=== PATIENT | male | born 1970 | race Caucasian/White ===

== ENCOUNTER 2016-09-29 11:55 | Inpatient (IN) | payer OTHER ==
[2016-09-29 13:42] VITALS: BMI 23.6
--- NOTE | 2016-09-29 18:18 | HP ---
Admission ROS [facility] Chief Complaint: i am here for rehab from heroin and crack Allergies/Adverse Reactions: Allergies Allergy/AdvReac Type Severity Reaction Status Date / Time No Known Allergies Allergy Verified 09/29/16 16:40 History of Present Illness: this 46 years old with heroin and crack dependence,seeking rehab,last treatment [facility] 09/24/16 to 09/29/16 nicotine dependence insomnia hypertension - Ebola screening Have you traveled outside of the country in the last 21 days: No Have you had contact with anyone from an Ebola affected area: No Have you been sick,other than usual withdrawal symptoms: No - Review of Systems Constitutional: No Symptoms Reported EENT: reports: No Symptoms Reported Respiratory: reports: No Symptoms reported Cardiac: reports: No Symptoms Reported GI: reports: No Symptoms Reported : reports: No Symptoms Reported Musculoskeletal: reports: No Symptoms Reported Integumentary: reports: No Symptoms Reported Neuro: reports: No Symptoms reported Endocrine: reports: No Symptoms Reported Hematology: reports: No Symptoms Reported Psychiatric: reports: No Sypmtoms Reported (insomnia), Judgement Intact, Mood/ Affect Appropiate, Anxious, Depressed Patient History - Patient Medical History Hx Anemia: No Hx Asthma: No Hx Chronic Obstructive Pulmonary Disease (COPD): No Hx Cancer: No Hx Cardiac Disorders: No Hx Congestive Heart Failure: No Hx Hypertension: Yes (no medication) Hx Hypercholesterolemia: No Hx Pacemaker: No HX Cerebrovascular Accident: No Hx Seizures: No Hx Dementia: No Hx Diabetes: No Hx Gastrointestinal Disorders: No Hx Liver Disease: No Hx Genitourinary Disorders: No Hx Sexually Transmitted Disorders: No Hx Renal Disease (ESRD): No Hx Thyroid Disease: No Hx Human Immunodeficiency Virus (HIV): No (2014 last negative) Hx Hepatitis C: No Hx Depression: Yes (anxiety) Hx Suicide Attempt: No Hx Bipolar Disorder: No Hx Schizophrenia: No Other Medical History: no suicidal,no homicidal - Patient Surgical History Past Surgical History: No - PPD History Previous Implant?: Yes Documented Results: Positive w/proof Implanted On Prior R Admission?: No PPD to be Administered?: No - Smoking Cessation Smoking history: Current every day smoker Have you smoked in the past 12 months: Yes Aproximately how many cigarettes per day: 10 Hx Chewing Tobacco Use: No Initiated information on smoking cessation: Yes 'Breaking Loose' booklet given: 09/29/16 - Substance & Tx. History Hx Alcohol Use: No Hx Substance Use: Yes Substance Use Type: Cocaine, Heroin Hx Substance Use Treatment: Yes ([facility] 09/24/16 to 09/29/16) - Substances Abused Heroin Route: Inhalation Frequency: Daily Amount used: 5 BAGS Age of first use: 30 Date of Last Use: 09/24/16 Crack Route: Smoking Frequency: Daily Amount used: $80-90 Age of first use: 18 Date of Last Use: 09/24/16 Family Disease History - Family Disease History Family History: Denies Admission Physical Exam [facility] - Vital Signs Vital Signs: Vital Signs - 24 hr 09/29/16 13:41 Temperature 98.3 F Pulse Rate 61 Respiratory 16 Rate Blood Pressure 128/73 - Physical General Appearance: Yes: Within Normal Limits HEENTM: Yes: Within Normal Limits, Normal ENT Inspection, BEATA, Pharynx Normal Respiratory: Yes: Lungs Clear, Normal Breath Sounds, No Respiratory Distress Neck: Yes: Within Normal Limits Breast: Yes: Within Normal Limits Cardiology: Yes: Within Normal Limits, Regular Rhythm, Regular Rate, S1, S2 Abdominal: Yes: Within Normal Limits, Normal Bowel Sounds, Non Tender, Flat, Soft Genitourinary: Yes: Within Normal Limits Back: Yes: Within Normal Limits Musculoskeletal: Yes: Within Normal Limits Extremities: Yes: Within Normal Limits Neurological: Yes: Within Normal Limits, tangible personal property appraiser II-XII NML intact, Fully Oriented, Alert Integumentary: Yes: Within Normal Limits Lymphatic: Yes: Within Normal Limits - Diagnostic (1) Opioid dependence Current Visit: Yes Status: Acute (2) Insomnia Current Visit: Yes Status: Acute (3) Anxiety and depression Current Visit: Yes Status: Acute (4) Nicotine dependence Current Visit: Yes Status: Acute (5) Positive PPD, treated Current Visit: Yes Status: Acute Cleared for Admission [facility] - Detox or Rehab Claeared for Rehab Admission: Yes [facility] Breath Alcohol Content Breath Alcohol Content: 0 Urine Drug Screen - Results Drug Screen Negative: No Urine Drug Screen Results: [place]-Cocaine, MTD-Methadone
[2016-09-29] MEDS ORDERED: ACETAMINOPHEN 325 MG TABLET (FP) PO PRN (18:30)
[2016-09-29] MEDS ORDERED: MENTHOL/PHENOL 1 EACH UD MM PRN (18:30)
[2016-09-29] MEDS ORDERED: MAGNESIUM CITRATE 300 ML BOTTLE PO PRN (18:30)
[2016-09-29] MEDS ORDERED: MAGNESIUM HYDROX 2400MG/30ML ORAL SUSPENSION 30 ML CUP PO PRN (18:30)
[2016-09-29] MEDS ORDERED: P-EPHED 60MG/TRIPROLIDI 2.5MG TABLET PO PRN (18:30)
[2016-09-29] MEDS ORDERED: guaiFENesin/D-METHORPHAN HB 10 ML UNIT-DOSE CUPS PO PRN (18:30)
[2016-09-29] MEDS ORDERED: LOPERAMIDE HCL 2 MG CAPSULE PO PRN (18:30)
[2016-09-29] MEDS ORDERED: MAG HYDROX/AL HYDROX/SIMETH 30 ML UNIT-DOSE CUP PO PRN (18:30)
[2016-09-29] MEDS ORDERED: cloNIDine HCL 0.1 MG TABLET PO PRN (19:45)
[2016-09-29] MEDS ORDERED: QUEtiapine FUMARATE 50 MG TABLET PO SCH (22:00)
[2016-09-29] MEDS: FLUOCINONIDE 0.05% CREAM (60 GM TUBE) TP SCH (22:38)
[2016-09-29] MEDS: THIAMINE HCL 100 MG TABLET (FP) PO SCH (22:39)
[2016-09-29 22:59] LABS: URINE APPEARANCE CLEAR; URINE BILIRUBIN NEGATIVE (NEGATIVE); URINE BLOOD NEGATIVE (NEGATIVE); URINE COLOR LTYELLOW; URINE GLUCOSE (UA) NEGATIVE (NEGATIVE); URINE KETONE NEGATIVE (NEGATIVE); URINE LEUK ESTERASE NEGATIVE (NEGATIVE); URINE NITRITE NEGATIVE (NEGATIVE); URINE PROTEIN NEGATIVE (NEGATIVE); URINE UROBILINOGEN NEGATIVE mg/dL (0.2-1.0)
[2016-09-30] MEDS: IBUPROFEN 400 MG TABLET (FP) PO PRN (06:21)
--- NOTE | 2016-09-30 09:23 | EKG ---
Test Reason : Blood Pressure : / mmHG Vent. Rate : 062 BPM Atrial Rate : 062 BPM P-R Int : 172 ms QRS Dur : 086 ms QT Int : 414 ms P-R-T Axes : 061 -23 040 degrees QTc Int : 420 ms NORMAL SINUS RHYTHM LEFT VENTRICULAR HYPERTROPHY NO PREVIOUS ECGS AVAILABLE Confirmed by MARIAN MEZA MD ([id number]) on 09/30/2016 9:22:58 AM Referred By: DR CHANG Confirmed By:MARIAN MEZA MD
[2016-09-30] MEDS: PRENATAL VITAMINS W/ FOLIC ACID TABLET (FP) PO SCH (10:02)
[2016-09-30] MEDS: FLUOCINONIDE 0.05% CREAM (60 GM TUBE) TP SCH ×2 (10:02→23:23)
--- NOTE | 2016-09-30 10:26 | HP ---
Psychiatrist Admission - Data Date of interview: 09/30/16 Admission source: [facility] Identifying data: THis is the first 5N inpatient rehabilitation admission for this 46 year old single Black male, unemployed and on welfare, residing alone in [place]. Medical History: HTN and Arthritis, smokes cigarettes 1/2 PPD. Psychiatric History: Patient reports met with a psychiatrist in outpatient setting to address depressed mood, anxiety , states was diagnosed as PTSD and recommended seroquel which he was on for a couple of months and then he stopped "I was busy running on the streets and doing drugs". States Seroquel helped "to relax and sleep". Patient reports due to the fact that he was in isolation 19 years he likes to be himself and he tends to isolate self.Reports he still withdrawing from heroin(sweating, boday aches). Additional Comment: Patient reports he spent 23 years in [facility], 19 in isolation( for killing inmate) released in 2014. Vital Signs: Vital Signs - 24 hr 09/29/16 09/29/16 09/30/16 13:41 19:29 00:30 Temperature 98.3 F 98.4 F Pulse Rate 61 64 Respiratory 16 20 18 Rate Blood Pressure 128/73 159/90 09/30/16 09/30/16 03:30 06:50 Temperature 98.1 F Pulse Rate 56 L Respiratory 18 16 Rate Blood Pressure 139/86 Allergies/Adverse Reactions: Allergies Allergy/AdvReac Type Severity Reaction Status Date / Time No Known Allergies Allergy Verified 09/29/16 16:40 Date of last physical exam: 09/29/16 Concur with the findings of this exam: Yes - Substance Abuse/Tx History Hx Alcohol Use: No Hx Substance Use: Yes Substance Use Type: Cocaine ($100-150 2-3 times a week, started at age of 18), Heroin (started toni ge of 30, used 5 bags daily.) Hx Substance Use Treatment: Yes - Admission Criteria Previous failed treatment: Yes Poor recovery environment: Yes Comorbidities: Yes Lacks judgement: Yes Mental Status Exam - Mental Status Exam Alert and Oriented to: Time, Place, Person Cognitive Function: Grossly Intact Patient Appearance: Well Groomed Mood: Apathetic, Sad, Anxious Affect: Blunted, Constricted Patient Behavior: Appropriate, Cooperative Speech Pattern: Clear, Appropriate Voice Loudness: Normal Thought Process: Intact, Goal Oriented Thought Disorder: Not Present Hallucinations: Denies Suicidal Ideation: Denies Homicidal Ideation: Denies Insight/Judgement: Fair Sleep: Poorly Appetite: Fair Muscle strength/Tone: Normal Gait/Station: Normal Psychiatric Findings - Problem List (Manquin 1, 2,3) (1) Nicotine dependence Current Visit: Yes Status: Acute (2) Opioid dependence Current Visit: Yes Status: Acute (3) Mood disorder Current Visit: Yes Status: Acute (4) PTSD (post-traumatic stress disorder) Current Visit: Yes Status: Acute - Initial Treatment Plan Initial Treatment Plan: Increase Seroquel 100 mg po hs, add Gabapentin 100 mg po tid , indications/properties of medications discussed with the patient, he agreed with careplan, monitor progress as needed.
[2016-09-30] MEDS ORDERED: PNEUMOC 13-VAL CONJ-DIP CRM/PF 0.5 ML DISP.SYRIN IM ONE (12:00)
[2016-09-30] MEDS ORDERED: PNEUMOCOCCAL 23 VACCINE 0.5 ML VIAL IM ONE (12:35)
[2016-09-30 14:10] LABS: MCH 29.2 pg (25.7-33.7); MCHC 33.9 g/dl (32.0-35.9); MEAN CELL VOLUME 86.1 fl (80-96); MEAN PLT VOLUME 8.3 fl (7.5-11.1); PLATELET COUNT 187 K/MM3 (134-434); RDW 13.6 % (11.9-15.9); WHITE BLOOD COUNT 5.2 K/mm3 (4.0-10.0)
[2016-09-30] MEDS: GABAPENTIN 100 MG CAPSULE (FP) PO SCH ×2 (14:13→21:34)
[2016-09-30 14:23] LABS: ALBUMIN 3.6 g/dl (3.4-5.0); ANION GAP 7 (8-16); CALCIUM 9.1 mg/dL (8.5-10.1); CO2 29 mmol/L (21-32); GLUCOSE,RANDOM 73 mg/dL (74-106)
[2016-09-30 14:28] LABS: ALK PHOS 85 U/L (45-117); BILIRUBIN,TOTAL 0.7 mg/dL (0.2-1.0); CREATININE 0.9 mg/dL (0.7-1.3); SGOT/AST 18 U/L (15-37); SGPT/ALT 21 U/L (12-78); TOT PROT 7.3 g/dl (6.4-8.2)
[2016-09-30 14:48] LABS: HIV 1 & 2 AB NEGATIVE; HIV 1 AGp24 NEGATIVE
[2016-09-30 15:23] LABS: SICKLE CELL SCREEN NEGATIVE (NEGATIVE)
[2016-09-30] MEDS: THIAMINE HCL 100 MG TABLET (FP) PO SCH (21:34)
[2016-09-30] MEDS: QUEtiapine FUMARATE 100 MG TABLET (FP) PO SCH (21:34)
[2016-09-30] MEDS: hydrOXYzine PAMOATE 50 MG CAPSULE (FP) PO PRN (23:41)
[2016-10-01] MEDS: IBUPROFEN 400 MG TABLET (FP) PO PRN ×2 (00:25→18:02)
[2016-10-01] MEDS: diphenhydrAMINE HCL 50 MG CAPSULE PO PRN (00:26)
[2016-10-01] MEDS: GABAPENTIN 100 MG CAPSULE (FP) PO SCH ×3 (06:29→21:23)
[2016-10-01] MEDS: PRENATAL VITAMINS W/ FOLIC ACID TABLET (FP) PO SCH (09:51)
[2016-10-01] MEDS: FLUOCINONIDE 0.05% CREAM (60 GM TUBE) TP SCH ×2 (09:52→21:24)
[2016-10-01] MEDS: THIAMINE HCL 100 MG TABLET (FP) PO SCH (21:23)
[2016-10-01] MEDS: QUEtiapine FUMARATE 100 MG TABLET (FP) PO SCH (21:23)
[2016-10-02] MEDS: diphenhydrAMINE HCL 50 MG CAPSULE PO PRN (00:19)
[2016-10-02] MEDS: GABAPENTIN 100 MG CAPSULE (FP) PO SCH ×3 (06:38→21:20)
[2016-10-02] MEDS: FLUOCINONIDE 0.05% CREAM (60 GM TUBE) TP SCH ×2 (09:57→21:20)
[2016-10-02] MEDS: PRENATAL VITAMINS W/ FOLIC ACID TABLET (FP) PO SCH (09:57)
[2016-10-02] MEDS: IBUPROFEN 400 MG TABLET (FP) PO PRN (14:33)
[2016-10-02] MEDS: THIAMINE HCL 100 MG TABLET (FP) PO SCH (21:20)
[2016-10-02] MEDS: QUEtiapine FUMARATE 100 MG TABLET (FP) PO SCH (21:20)
[2016-10-03] MEDS: GABAPENTIN 100 MG CAPSULE (FP) PO SCH ×3 (06:44→21:21)
[2016-10-03] MEDS: IBUPROFEN 400 MG TABLET (FP) PO PRN (09:24)
[2016-10-03] MEDS: FLUOCINONIDE 0.05% CREAM (60 GM TUBE) TP SCH ×2 (09:25→21:21)
[2016-10-03] MEDS: PRENATAL VITAMINS W/ FOLIC ACID TABLET (FP) PO SCH (09:25)
--- NOTE | 2016-10-03 11:34 | PN ---
[facility] Progress Note Note: patient stated has sle since 1998,has rheumatoid arthritis since 1999, non compliance used to take prednisone did not see rheumatiologist for 1 year both ring fingers with deformity and pain lung clear afebrile impression rheumatoid arthritis sle treatment prednisone 40 mgs po today,taper in 1 week also has gerd use to take prilosec will give protonix 40 mgs po daily
[2016-10-03] MEDS ORDERED: predniSONE 20 MG TABLET (UD) PO ONE (11:49)
[2016-10-03] MEDS: PANTOPRAZOLE 40 MG TABLET (FP) PO SCH (12:17)
[2016-10-03] MEDS: THIAMINE HCL 100 MG TABLET (FP) PO SCH (21:20)
[2016-10-03] MEDS: QUEtiapine FUMARATE 100 MG TABLET (FP) PO SCH (21:20)
[2016-10-04] MEDS: hydrOXYzine PAMOATE 50 MG CAPSULE (FP) PO PRN (02:18)
[2016-10-04] MEDS: GABAPENTIN 100 MG CAPSULE (FP) PO SCH ×2 (06:01→14:34)
[2016-10-04] MEDS ORDERED: predniSONE 10 MG TABLET (UD) PO ONE (10:00)
[2016-10-04] MEDS: PRENATAL VITAMINS W/ FOLIC ACID TABLET (FP) PO SCH (10:39)
[2016-10-04] MEDS: FLUOCINONIDE 0.05% CREAM (60 GM TUBE) TP SCH ×2 (10:39→21:28)
[2016-10-04] MEDS: PANTOPRAZOLE 40 MG TABLET (FP) PO SCH (10:39)
--- NOTE | 2016-10-04 15:23 | PN ---
Psychiatric Progress Note Vital Signs: Vital Signs Period Temp Pulse Resp BP Sys/Winkler Pulse Ox Last 24 Hr 98.2 F 60 18-18 147/76 Date of Session: 10/04/16 Chief Complaint:: progress update. HPI: Patient is addressing opioid, nicotine dependence comorbid PTSD, mood disorder. ROS: WNL Current Medications: Active Medications Generic Name Dose Route Start Last Admin Trade Name Freq PRN Reason Stop Dose Admin Acetaminophen 650 mg 09/29/16 18:30 Tylenol - PO Q4H PRN PAIN Al Hydroxide/Mg Hydroxide 30 ml 09/29/16 18:30 Mylanta Oral Suspension - PO Q6H PRN DYSPEPSIA Clonidine 0.1 mg 09/29/16 19:45 09/29/16 22:40 Catapres - PO 0.1 mg BID PRN Administration HYPERTENSION Diphenhydramine HCl 50 mg 09/29/16 22:00 10/02/16 00:19 Benadryl - PO 50 mg HSMR1 PRN Administration INSOMNIA Eucalyptus/Menthol/Phenol/Sorbitol 1 each 09/29/16 18:30 Cepastat Lozenge - MM Q4H PRN SORE THROAT Fluocinonide 1 applic 09/29/16 22:00 10/04/16 10:39 Lidex 0.05% Cream - TP Not Given BID SUELLEN Guaifenesin 10 ml 09/29/16 18:30 Robitussin Dm - PO Q6H PRN COUGH Hydroxyzine Pamoate 50 mg 09/29/16 18:30 10/04/16 02:18 Vistaril - PO 50 mg Q4H PRN Administration AGITATION Ibuprofen 400 mg 09/29/16 18:30 10/03/16 09:24 Motrin - PO 400 mg Q6H PRN Administration SEVERE PAIN Loperamide HCl 4 mg 09/29/16 18:30 Imodium - PO Q6H PRN DIARRHEA Magnesium Citrate 300 ml 09/29/16 18:30 Citroma - PO Q48H PRN CONSTIPATION Magnesium Hydroxide 30 ml 09/29/16 18:30 Milk Of Magnesia - PO DAILY PRN CONSTIPATION Pantoprazole Sodium 40 mg 10/03/16 11:45 10/04/16 10:39 Protonix - PO 40 mg DAILY SUELLEN Administration Prednisone 20 mg 10/05/16 10:00 Deltasone - PO 10/05/16 10:01 ONCE ONE Prednisone 10 mg 10/06/16 10:00 Deltasone - PO 10/06/16 10:01 ONCE ONE Prednisone 10 mg 10/07/16 10:00 Deltasone - PO 10/07/16 10:01 ONCE ONE Prednisone 5 mg 10/08/16 10:00 Deltasone - PO 10/08/16 10:01 ONCE ONE Prednisone 5 mg 10/09/16 10:00 Deltasone - PO 10/09/16 10:01 ONCE ONE Multivit/Folic Acid/Iron 1 tab 09/30/16 10:00 10/04/16 10:39 Vitamins (Sjr) - PO 1 tab DAILY SUELLEN Administration Pseudoephedrine/Triprolidine 1 combo 09/29/16 18:30 Actifed - PO TID PRN NASAL CONGESTION Quetiapine Fumarate 100 mg 09/30/16 22:00 10/03/16 21:20 Seroquel - PO 100 mg HS SUELLEN Administration Thiamine HCl 100 mg 09/29/16 22:00 10/03/16 21:20 Vitamin B1 - PO 100 mg HS SUELLEN Administration Current Side Effect: No Lab tests ordered: No Lab tests reviewed: Yes Provider note:: Patient reports feeling fatiqued during day time, he is unable to sleep at nights, reports while in [facility] he used to sleep on the hard floors and continued the same abbit when he rel[facility] from [facility], feels very uncomfortable in bed, he having troble to fall and maintain sleep. Discussed indications and properties of Belsomra, patient agreed to start. Will d/c Gabapentin, add Belsomra, psychoeducation and emotional supports provided. wiil continue to monitor progress. Total face to face time:: 35 Mental Status Exam - Mental Status Exam Alert and Oriented to: Time, Place, Person Cognitive Function: Grossly Intact Patient Appearance: Well Groomed Mood: Sad, Anxious Affect: Mood Congruent, Blunted Patient Behavior: Cooperative Speech Pattern: Appropriate Voice Loudness: Normal Thought Process: Intact, Goal Oriented Thought Disorder: Not Present Hallucinations: Denies Suicidal Ideation: Denies Homicidal Ideation: Denies Insight/Judgement: Fair Sleep: Poorly, Difficulty falling asleep Appetite: Fair Muscle strength/Tone: Normal Gait/Station: Normal Psychiatric Treatment Plan - Problem List (1) Nicotine dependence Current Visit: Yes (2) Opioid dependence Current Visit: Yes (3) Mood disorder Current Visit: Yes (4) PTSD (post-traumatic stress disorder) Current Visit: Yes
[2016-10-04] MEDS: SUVOREXANT 10 MG TABLET PO SCH (21:28)
[2016-10-04] MEDS: QUEtiapine FUMARATE 100 MG TABLET (FP) PO SCH (21:28)
[2016-10-04] MEDS: THIAMINE HCL 100 MG TABLET (FP) PO SCH (21:28)
[2016-10-04] MEDS: IBUPROFEN 400 MG TABLET (FP) PO PRN (21:29)
[2016-10-05] MEDS: PRENATAL VITAMINS W/ FOLIC ACID TABLET (FP) PO SCH (09:54)
[2016-10-05] MEDS: PANTOPRAZOLE 40 MG TABLET (FP) PO SCH (09:54)
[2016-10-05] MEDS: FLUOCINONIDE 0.05% CREAM (60 GM TUBE) TP SCH ×2 (09:55→21:26)
[2016-10-05] MEDS: IBUPROFEN 400 MG TABLET (FP) PO PRN ×2 (09:56→21:27)
[2016-10-05] MEDS ORDERED: predniSONE 20 MG TABLET (UD) PO ONE (10:00)
[2016-10-05] MEDS: SUVOREXANT 10 MG TABLET PO SCH (21:25)
[2016-10-05] MEDS: QUEtiapine FUMARATE 100 MG TABLET (FP) PO SCH (21:25)
[2016-10-05] MEDS: THIAMINE HCL 100 MG TABLET (FP) PO SCH (21:26)
[2016-10-06 06:55] VITALS: BP 140/86; PULSE 86; TEMP 98
[2016-10-06] MEDS: PRENATAL VITAMINS W/ FOLIC ACID TABLET (FP) PO SCH (09:59)
[2016-10-06] MEDS: PANTOPRAZOLE 40 MG TABLET (FP) PO SCH (09:59)
[2016-10-06] MEDS: FLUOCINONIDE 0.05% CREAM (60 GM TUBE) TP SCH (09:59)
[2016-10-06] MEDS ORDERED: predniSONE 10 MG TABLET (UD) PO ONE (10:00)
--- NOTE | 2016-10-06 13:27 | PN ---
Psychiatric Progress Note Vital Signs: Vital Signs Period Temp Pulse Resp BP Sys/Winkler Pulse Ox Last 24 Hr 98.0 F 86 18-18 140/86 Date of Session: 10/06/16 Chief Complaint:: discharge HPI: Patient is addressing opioid, nicotine dependence comorbid PTSD , mood disorder. ROS: WNL Current Side Effect: No Lab tests ordered: No Lab tests reviewed: Yes Provider note:: Patient requested to discharge him today, he com-lted 8 days and will continue to address his issues at [facility] outpatient program. Patient was encouraged to continue maintain abstinence and follow up with his medical appointments. Seroquel well tolerated, scripts provided , he is stable for discharge. Total face to face time:: 15 Mental Status Exam - Mental Status Exam Alert and Oriented to: Time, Place, Person Cognitive Function: Good Patient Appearance: Well Groomed Mood: Hopeful Affect: Appropriate, Mood Congruent Patient Behavior: Appropriate, Cooperative Speech Pattern: Clear, Appropriate Voice Loudness: Normal Thought Process: Intact, Goal Oriented Thought Disorder: Not Present Hallucinations: Denies Suicidal Ideation: Denies Homicidal Ideation: Denies Insight/Judgement: Fair Sleep: Fair Appetite: Fair Muscle strength/Tone: Normal Gait/Station: Normal
[2016-10-07] MEDS ORDERED: predniSONE 10 MG TABLET (UD) PO ONE (10:00)
[2016-10-08] MEDS ORDERED: predniSONE 5 MG TABLET (UD) PO ONE (10:00)
[2016-10-09] MEDS ORDERED: predniSONE 5 MG TABLET (UD) PO ONE (10:00)
== END 2016-10-06 12:15 | disposition home or self-care (01) | DRG 772 ==
LOC: YASAS 11:55 → Y5N 17:23
PROVIDERS: ADMIT Psychiatry & Neurology Psychiatry; ATTEND Psychiatry & Neurology Psychiatry
PROC: HZ42ZZZ Group Counseling for Substance Abuse Treatment, Cognitive-Behavioral (ICD-10-PCS; principal; 2016-09-29)
DX: F11.20 Opioid dependence, uncomplicated (principal); F17.210 Nicotine dependence, cigarettes, uncomplicated; F39 Unspecified mood [affective] disorder; F43.10 Post-traumatic stress disorder, unspecified; F41.8 Other specified anxiety disorders; M32.9 Systemic lupus erythematosus, unspecified; M06.9 Rheumatoid arthritis, unspecified
CPT/HCPCS: 36415; 80053; 81003; 85027; 85660; 86593; 86803; 87389; 90732; 93005; 93010; G0009